=== PATIENT | female | born 2005 | race Caucasian/White ===

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

== ENCOUNTER → 2025-03-04 | Outpatient (REF) | payer OTHER ==
[2025-03-04 17:24] LABS: Trichomonas vaginalis (AMP) NOT DETECTED (NEGATIVE)
[2025-03-04 17:47] LABS: GC DNA AMPLIFICATION NEGATIVE (NEGATIVE)
== END ==
LOC: M SFHCWAGY 15:21
PROVIDERS: ATTEND Obstetrics & Gynecology
DX: Z34.93 Encounter for supervision of normal pregnancy, unspecified, third trimester (principal)

== ENCOUNTER 2025-05-01 09:16 | Inpatient (IN) | payer OTHER ==
[~2025-05-01] VITALS: Ht 165.1 cm; Wt 72.8 kg
[2025-05-01] VITALS (20 sets, daily range): BP systolic 97–136; BP diastolic 51–81; O2SAT 97
[2025-05-01 10:26] LABS: PLATELET COUNT, AUTOMATED 292 10^3/uL (150-450)
[2025-05-01] MEDS ORDERED: LIDOCAINE 1% MDV 20 ML VIAL INFIL PRN (10:35)
[2025-05-01] MEDS: miSOPROStol 50 MCG 1/2 TABLET SL SCH (11:14)
[2025-05-01 11:24] LABS: HIV 1&2 SCREEN NEGATIVE (NEGATIVE)
[2025-05-01 11:31] LABS: HEPATITIS C VIRUS ABY INDEX 0.04 INDEX (<0.8)
[2025-05-01] MEDS: BUTORPHANOL 2 MG/ML 1 ML VIAL IV ONE (15:52)
[2025-05-01] MEDS: LR 1,000 ML IV SCH (15:53)
[2025-05-01] MEDS ORDERED: LR 500 ML IV PRN (18:40)
[2025-05-01] MEDS ORDERED: diphenhydrAMINE 50 MG/ML VIAL IV PRN (18:40)
[2025-05-01] MEDS ORDERED: EPIDURAL/PCA KEYS XX PRN (18:40)
[2025-05-01] MEDS ORDERED: NALOXONE INJ 0.4 MG/1 ML VIAL IV PRN (18:40)
[2025-05-01] MEDS ORDERED: ONDANSETRON 4MG 2ML VIAL IV PRN (18:40)
[2025-05-01] MEDS ORDERED: FENTANYL 2 MCG/ML ROPIVACAINE 0.2% IN 0.9% NACL 100 ML IVBAG As Ordered ONE (18:42)
[2025-05-01] MEDS: FENTANYL/ROPIVACAINE/NACL BAG 100 ML EPIDURAL SCH (18:55)
[2025-05-01] MEDS ORDERED: ACETAMINOPHEN 325 MG TAB PO PRN (20:30)
[2025-05-01] MEDS ORDERED: METHYLERGONOVINE MALEATE 0.2 MG TAB PO PRN (20:30)
[2025-05-01] MEDS ORDERED: RHOGAM 300MCG (1500IU) INJ IM SCH (20:30)
[2025-05-01] MEDS: OXYTOCIN DRIP 30 UNITS in IV 1 EA IV PRN (22:37)
[2025-05-01] MEDS: IBUPROFEN 800 MG TAB PO PRN (23:25)
[2025-05-01] MEDS: DIBUCAINE 1% OINTMENT 30 GM TOP PRN (23:25)
[2025-05-02 05:38] VITALS: BP 102/64; O2SAT 98
[2025-05-02] MEDS: PRENATAL VITAMINS CHEWABLE TABLET PO SCH (11:15)
[2025-05-02] MEDS: ACETAMINOPHEN 500 MG TAB PO PRN (13:27)
[2025-05-02] MEDS: ANUSOL HC CREAM 30 GM TOP PRN (16:09)
[2025-05-02 18:00] VITALS: BP 108/59; O2SAT 98
[2025-05-02] MEDS: DOCUSATE SODIUM 100 MG CAPSULE PO PRN (21:44)
[2025-05-03 06:05] VITALS: BP 112/58; O2SAT 97
[2025-05-03] MEDS: MEASLES,MUMPS,RUBELLA VACCINE INJ (MMR-II) SC.IMMUN ONE (08:54)
[2025-05-03] MEDS ORDERED: HOME MED LIST COMPLETE! XX SCH (09:00)
[2025-05-03] MEDS: IBUPROFEN 600 MG TAB PO PRN (09:19)
[2025-05-03 10:52] LABS: PLATELET COUNT, AUTOMATED 271 10^3/uL (150-450)
== END 2025-05-03 12:58 | disposition home or self-care (01) | DRG 560 ==
LOC: M LDI 09:16 → M OBS 23:17
PROVIDERS: ADMIT Specialist; ATTEND Specialist
PROC: 10E0XZZ Delivery of Products of Conception, External Approach (ICD-10-PCS; principal; 2025-05-01)
PROC: 3E0P7GC Introduction of Other Therapeutic Substance into Female Reproductive, Via Natural or Artificial Opening (ICD-10-PCS; 2025-05-01)
DX: O69.81X0 Labor and delivery complicated by cord around neck, without compression, not applicable or unspecified (principal); Z3A.39 39 weeks gestation of pregnancy; Z37.0 Single live birth